=== PATIENT | male | born 1980 | race Caucasian/White ===

== ENCOUNTER 2017-02-16 20:46 | Emergency (ER) | payer BC, MEDICAID ==
[2017-02-16 20:54] VITALS: BP 158/103
[2017-02-16] MEDS ORDERED: Albuterol/Ipratropium 3.0-0.5 MG/3 ML Neb Soln NEB ONE (21:05)
--- NOTE | 2017-02-16 21:36 | EDM.PDOC ---
ED HPI GENERAL MEDICAL PROBLEM - General Chief Complaint: Respiratory Problem Stated Complaint: TROUBLE BREATHING Time Seen by Provider: 02/16/17 20:59 Source of Information: Reports: Patient History Limitations: Reports: No limitations - History of Present Illness INITIAL COMMENTS - FREE TEXT/NARRATIVE: History of present illness: [37-year-old male presenting with an irritant cough. He has been on inhalers in the past albuterol and Symbicort but couldn't afford it because he doesn't have insurance. He now has insurance and can afford to get his inhalers. 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 The cough is minimally productive and he's had no fevers or chills and no shortness of breath.] Review of systems: As per history of present illness and below otherwise all systems reviewed and negative. Past medical history: As per history of present illness and as reviewed below otherwise noncontributory. Surgical history: As per history of present illness and as reviewed below otherwise noncontributory. Social history: No reported history of drug or alcohol abuse. Family history: As per history of present illness and as reviewed below otherwise noncontributory. Physical exam: HEENT: Atraumatic, normocephalic, pupils reactive, negative for conjunctival pallor or scleral icterus, mucous membranes moist, throat clear, neck supple, nontender, trachea midline. Lungs: A few scattered expiratory wheezes were present he states that his chest hurts and may when he inspires Heart: S1S2, regular, negative for clicks, rubs, or JVD. Abdomen: Soft, nondistended, nontender. Negative for masses or hepatosplenomegaly. Negative for costovertebral tenderness. Pelvis: Stable nontender. Genitourinary: Deferred. Rectal: Deferred. Extremities: Atraumatic, negative for cords or calf pain. Neurovascular unremarkable. Neuro: Awake, alert, oriented. Exam nonfocal. Diagnostics: [] Therapeutics: [He received one DuoNeb treatment and his lungs cleared and he felt much better] Impression: [Cough as a manifestation of asthma] Plan: [I'm providing him with albuterol and Symbicort scripts so that he can resume his medications. He will get the albuterol from the instrument and get the Symbicort from her pharmacy tomorrow.] Definitive disposition and diagnosis as appropriate pending reevaluation and review of above. Left Middle Chest Pain Score (Numeric/FACES): 4 - Related Data Allergies Allergy/AdvReac Type Severity Reaction Status Date / Time No Known Allergies Allergy Verified 12/14/15 12:25 Home Meds: Home Meds NK [No Known Home Meds] 10/11/15 [History] Past Medical History Cardiovascular History: Reports: Other (see below) Other Cardiovascular History: "fluid around the heart" Respiratory History: Reports: Asthma, Interstitial lung disease, Other (see below) Other Respiratory History: has been seeing pulmonology and ID in [place] 2014 Musculoskeletal History: Reports: Back pain, chronic Neurological History: Reports: Head trauma, Migraines Psychiatric History: Reports: Anxiety, Depression 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 - Infectious Disease History Infectious Disease History: Reports: Chicken pox - Past Surgical History HEENT Surgical History: Reports: Myringotomy w tube(s) Other Musculoskeletal Surgeries/Procedures:: wrist and elbow surgery Social & Family History - Tobacco Use Smoking Status *Q: Former Smoker Years of Tobacco use: 17 Packs/Tins Daily: 1 Used Tobacco, but Quit: Yes Month Tobacco Last Used: 24 Second Hand Smoke Exposure: No - Caffeine Use Caffeine Use: Reports: Coffee, Soda - Alcohol Use Days Per Week of Alcohol Use: 0 - Recreational Drug Use Recreational Drug Use: No ED ROS GENERAL - Review of Systems Review Of Systems: ROS reveals no pertinent complaints other than HPI. ED EXAM, GENERAL - Physical Exam Exam: See Below Course - Vital Signs Last Recorded V/S: Last Vital Signs Temp 36.2 C 02/16/17 20:54 Pulse 103 H 02/16/17 20:54 Resp 20 02/16/17 20:54 BP 158/103 H 02/16/17 20:54 Pulse Ox 98 02/16/17 20:54 - Orders/Labs/Meds Orders: Active Orders 24 hr Category Date Time Status RT Aerosol Therapy [RC] ASDIRECTED Care 02/16/17 21:06 Active Meds: Medications Discontinued Medications Generic Name Dose Route Start Last Admin Trade Name Freq PRN Reason Stop Dose Admin Albuterol/Ipratropium 3 ml 02/16/17 21:05 02/16/17 21:12 Duoneb 3.0-0.5 Mg/3 Ml NEB 02/16/17 21:06 3 ml ONETIME ONE Administration Departure - Departure Time of Disposition: 21:35 Disposition: Home, Self-Care 01 Condition: good Clinical Impression: Cough variant asthma - Discharge Information Forms: ED Department Discharge Additional Instructions: If the inhalers are not helping her cough I would advise you followup with your primary care provider. He may need to have pulmonary function testing done. - My Orders Last 24 Hours: My Active Orders 02/16/17 21:06 RT Aerosol Therapy [RC] ASDIRECTED - Assessment/Plan Last 24 Hours: My Active Orders 02/16/17 21:06 RT Aerosol Therapy [RC] ASDIRECTED
== END 2017-02-16 21:51 | disposition home or self-care (01) ==
LOC: JP.ED 20:46
DX: J45.909 Unspecified asthma, uncomplicated (principal); R00.0 Tachycardia, unspecified; J84.9 Interstitial pulmonary disease, unspecified; Z87.891 Personal history of nicotine dependence; G89.29 Other chronic pain; M54.9 Dorsalgia, unspecified; F41.9 Anxiety disorder, unspecified; F32.9 Major depressive disorder, single episode, unspecified; D68.51 Activated protein C resistance
CPT/HCPCS: 94640; 99285; J7620

== ENCOUNTER 2017-07-18 17:33 | Emergency (ER) | payer BC ==
[2017-07-18 18:02] VITALS: BP 123/76
--- NOTE | 2017-07-18 18:32 | EDM.PDOC ---
ED HPI GENERAL MEDICAL PROBLEM - General Chief Complaint: General Stated Complaint: VISION NOT RIGHT, HEAD IS NUMB Time Seen by Provider: 07/18/17 18:27 Source of Information: Reports: Patient, Family History Limitations: Reports: No Limitations - History of Present Illness INITIAL COMMENTS - FREE TEXT/NARRATIVE: pt arrived with numbness in the left facial area. He has twitching in the left eye. Onset: Gradual, Other ( started last nite. ) Duration: Hour(s): Location: Reports: Face Quality: Reports: Sharp, Stabbing Associated Symptoms: Reports: No Other Symptoms - Related Data Allergies Allergy/AdvReac Type Severity Reaction Status Date / Time No Known Allergies Allergy Verified 07/18/17 18:02 Home Meds: Home Meds Albuterol Sulfate [Ventolin Hfa] 1 puff INH ASDIRECTED 07/18/17 [History] Budesonide/Formoterol [Symbicort 160-4.5 MCG] 1 puff INH ASDIRECTED 07/18/17 [ History] Sertraline HCl [Sertraline HCl] 1 tab PO DAILY 07/18/17 [History] Past Medical History Cardiovascular History: Reports: Other (See Below) Other Cardiovascular History: "fluid around the heart" Respiratory History: Reports: Asthma, Interstitial Lung Disease Other Respiratory History: has been seeing pulmonology and ID in [place] 2014 Musculoskeletal History: Reports: Back Pain, Chronic, Fracture Neurological History: Reports: Head Trauma, Migraines Psychiatric History: Reports: Anxiety, Depression 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 - Infectious Disease History Infectious Disease History: Reports: Chicken Pox - Past Surgical History HEENT Surgical History: Reports: Myringotomy w Tube(s) Musculoskeletal Surgical History: Reports: Other (See Below) Other Musculoskeletal Surgeries/Procedures:: wrist repair Social & Family History - Tobacco Use Smoking Status *Q: Never Smoker Years of Tobacco use: 17 Packs/Tins Daily: 1 Used Tobacco, but Quit: Yes Month Tobacco Last Used: 24 Second Hand Smoke Exposure: No - Caffeine Use Caffeine Use: Reports: Coffee, Soda - Alcohol Use Days Per Week of Alcohol Use: 0 - Recreational Drug Use Recreational Drug Use: No ED ROS GENERAL - Review of Systems Review Of Systems: See Below Constitutional: Reports: No Symptoms HEENT: Denies: Other ( facial numbness, left eye looks droopy and it is twitching. ) Respiratory: Reports: No Symptoms Cardiovascular: Reports: No Symptoms Endocrine: Reports: No Symptoms GI/Abdominal: Reports: No Symptoms : Reports: No Symptoms Musculoskeletal: Reports: No Symptoms Skin: Reports: No Symptoms ED EXAM, GENERAL - Physical Exam Exam: See Below Free Text/Narrative:: Pt arrived with left facial numbness and the left eye is twitching, He was recently checked for lymes. Exam Limited By: No Limitations General Appearance: Alert, Anxious, Moderate Distress, Other ( left eye lid looks dropopy and it is twitcy. ) Ears: Normal TMs Nose: Normal Inspection Throat/Mouth: Normal Inspection Head: Atraumatic Neck: Normal Inspection Respiratory/Chest: No Respiratory Distress Cardiovascular: Regular Rate, Rhythm GI/Abdominal: Soft, Non-Tender (Male) Exam: Deferred Rectal (Males) Exam: Deferred Back Exam: Normal Inspection Extremities: Other (pt has a weaker grasp on the left than on the rt. ) Neurological: Alert, Oriented, Normal Cognition Psychiatric: Normal Affect Course - Vital Signs Last Recorded V/S: Last Vital Signs Temp 36.3 C 07/18/17 18:00 Pulse 101 H 07/18/17 18:00 Resp 16 07/18/17 18:00 BP 123/76 07/18/17 18:00 Pulse Ox 96 07/18/17 18:00 Orthostatic Blood Pressure [ 129/97 Standing] Orthostatic Blood Pressure [ 125/93 Sitting] Orthostatic Blood Pressure [ 126/88 Supine] - Orders/Labs/Meds Orders: Active Orders 24 hr Category Date Time Status EKG Documentation Completion [RC] ASDIRECTED Care 07/18/17 18:25 Active Orthostatic Vital Signs [RC] ASDIRECTED Care 07/18/17 19:43 Active Head wo Cont [CT] Stat Exams 07/18/17 18:25 Taken LYME AB SCREEN RFLX [REF] Stat Lab 07/18/17 18:30 Received EKG 12 Lead [EK] Routine Ther 07/18/17 18:25 Ordered Labs: Laboratory Tests 07/18/17 07/18/17 07/18/17 Range/Units 18:24 18:34 18:34 WBC 6.5 (4.5-11.0) K/uL RBC 5.53 (4.30-5.90) M/uL Hgb 17.0 H (12.0-15.0) g/dL Hct 49.3 (40.0-54.0) % MCV 89 (80-98) fL MCH 31 (27-31) pg MCHC 35 (32-36) % Plt Count 264 (150-400) K/uL Neut % (Auto) 63 (36-66) % Lymph % (Auto) 22 L (24-44) % Furn[place] % (Auto) 12 H (2-6) % Eos % (Auto) 2 (2-4) % Baso % (Auto) 1 (0-1) % Sodium (140-148) mmol/L Potassium (3.6-5.2) mmol/L Chloride (100-108) mmol/L Carbon Dioxide (21-32) mmol/L Anion Gap (5.0-14.0) mmol/L BUN (7-18) mg/dL Creatinine (0.8-1.3) mg/dL Est Cr Clr Drug Dosing mL/min Estimated GFR (MDRD) (>60) Glucose (74-106) mg/dL Calcium (8.5-10.1) mg/dL Total Bilirubin (0.2-1.0) mg/dL AST (15-37) U/L ALT (12-78) U/L Alkaline Phosphatase (46-116) U/L C-Reactive Protein 0.21 (0.0-0.3) mg/dL Total Protein (6.4-8.2) g/dL Albumin (3.4-5.0) g/dL Globulin (2.3-3.5) g/dL Albumin/Globulin Ratio (1.2-2.2) Urine Color Yellow Urine Appearance Clear Urine pH 6.0 (4.5-8.0) Ur Specific Stanford 1.020 (1.008-1.030) Urine Protein Negative (NEGATIVE) mg/dL Urine Glucose (UA) 50 H (NEGATIVE) mg/dL Urine Ketones Negative (NEGATIVE) mg/dL Urine Occult Blood Negative (NEGATIVE) Urine Nitrite Negative (NEGAITVE) Urine Bilirubin Negative (NEGATIVE) Urine Urobilinogen Normal (NORMAL) mg/dL Ur Leukocyte Esterase Negative (NEGATIVE) Urine RBC 0-5 (0-5) Urine WBC 0-5 (0-5) Ur Epithelial Cells Rare Amorphous Sediment Not seen Urine Bacteria Not seen Urine Mucus Rare 07/18/17 Range/Units 18:34 WBC (4.5-11.0) K/uL RBC (4.30-5.90) M/uL Hgb (12.0-15.0) g/dL Hct (40.0-54.0) % MCV (80-98) fL MCH (27-31) pg MCHC (32-36) % Plt Count (150-400) K/uL Neut % (Auto) (36-66) % Lymph % (Auto) (24-44) % Furn[place] % (Auto) (2-6) % Eos % (Auto) (2-4) % Baso % (Auto) (0-1) % Sodium 138 L (140-148) mmol/L Potassium 3.8 (3.6-5.2) mmol/L Chloride 101 (100-108) mmol/L Carbon Dioxide 31 (21-32) mmol/L Anion Gap 9.8 (5.0-14.0) mmol/L BUN 14 (7-18) mg/dL Creatinine 1.1 (0.8-1.3) mg/dL Est Cr Clr Drug Dosing 96.78 mL/min Estimated GFR (MDRD) > 60 (>60) Glucose 78 (74-106) mg/dL Calcium 9.0 (8.5-10.1) mg/dL Total Bilirubin 0.5 (0.2-1.0) mg/dL AST 24 (15-37) U/L ALT 52 (12-78) U/L Alkaline Phosphatase 94 (46-116) U/L C-Reactive Protein (0.0-0.3) mg/dL Total Protein 7.2 (6.4-8.2) g/dL Albumin 3.8 (3.4-5.0) g/dL Globulin 3.4 (2.3-3.5) g/dL Albumin/Globulin Ratio 1.1 L (1.2-2.2) Urine Color Urine Appearance Urine pH (4.5-8.0) Ur Specific Stanford (1.008-1.030) Urine Protein (NEGATIVE) mg/dL Urine Glucose (UA) (NEGATIVE) mg/dL Urine Ketones (NEGATIVE) mg/dL Urine Occult Blood (NEGATIVE) Urine Nitrite (NEGAITVE) Urine Bilirubin (NEGATIVE) Urine Urobilinogen (NORMAL) mg/dL Ur Leukocyte Esterase (NEGATIVE) Urine RBC (0-5) Urine WBC (0-5) Ur Epithelial Cells Amorphous Sediment Urine Bacteria Urine Mucus Meds: Medications Discontinued Medications Generic Name Dose Route Start Last Admin Trade Name Souleymane PRN Reason Stop Dose Admin Aspirin 325 mg 07/18/17 19:51 07/18/17 19:56 Ecotrin PO 07/18/17 19:52 325 mg ONETIME ONE Administration - Re-Assessments/Exams Free Text/Narrative Re-Assessment/Exam: 07/18/17 19:39 Pt had a normal crp, His ekg looked good. His lab work was normal. A cat scan of the head was noted to be normal. He evidently had about 20 episodes where he just could not see normally and everything went dempsey. He was at work when this happened. He had another episode while he was here. He does have a twitchy eye lid and the eye lid looked droopy. Departure - Departure Time of Disposition: 20:09 Disposition: Home, Self-Care 01 Condition: Fair Clinical Impression: Peripheral nerve palsy - Discharge Information Referrals: Raiza Colmenares DO [Primary Care Provider] - Forms: ED Department Discharge Care Plan Goals: rtc to Er tomorrow to be rechecked and have a Mri of the head if symptoms persist. Rtc to the Er tonight if symptoms should get worse. - My Orders Last 24 Hours: My Active Orders 07/18/17 18:25 EKG Documentation Completion [RC] ASDIRECTED Head wo Cont [CT] Stat EKG 12 Lead [EK] Routine 07/18/17 18:30 LYME AB SCREEN RFLX [REF] Stat 07/18/17 19:43 Orthostatic Vital Signs [RC] ASDIRECTED - Assessment/Plan Last 24 Hours: My Active Orders 07/18/17 18:25 EKG Documentation Completion [RC] ASDIRECTED Head wo Cont [CT] Stat EKG 12 Lead [EK] Routine 07/18/17 18:30 LYME AB SCREEN RFLX [REF] Stat 07/18/17 19:43 Orthostatic Vital Signs [RC] ASDIRECTED
[2017-07-18] MEDS ORDERED: Aspirin 325 MG Tab.EC PO ONE (19:51)
== END 2017-07-18 20:26 | disposition home or self-care (01) ==
LOC: JP.ED 17:33
DX: G58.8 Other specified mononeuropathies (principal); J45.909 Unspecified asthma, uncomplicated; F32.9 Major depressive disorder, single episode, unspecified; Z89.622 Acquired absence of left hip joint; Z87.891 Personal history of nicotine dependence; Z79.899 Other long term (current) drug therapy
CPT/HCPCS: 36415; 70450; 80053; 81001; 85025; 86140; 86618; 93005; 99285; A9270

== ENCOUNTER 2017-07-20 20:34 | Emergency (ER) | payer BC ==
[2017-07-20] MEDS ORDERED: Sodium Chloride 0.9% 10 ML Syringe FLUSH PRN (21:37)
[2017-07-20] MEDS ORDERED: Iopamidol 755 Mg/ML 100 ML Bottle IV SCH (22:00)
[2017-07-20] MEDS ORDERED: Sodium Chloride 0.9% 100 ML IV SCH (22:00)
[2017-07-21 00:07] VITALS: BP 122/78
[2017-07-21] MEDS ORDERED: carBAMazepine 200 MG Tab PO ONE (00:19)
--- NOTE | 2017-07-21 00:23 | EDM.PDOC ---
ED HPI GENERAL MEDICAL PROBLEM - General Chief Complaint: Neuro Symptoms/Deficits Stated Complaint: FAINTED EARLIER Time Seen by Provider: 07/20/17 20:57 Source of Information: Reports: Patient, Old Records History Limitations: Reports: No Limitations - History of Present Illness INITIAL COMMENTS - FREE TEXT/NARRATIVE: This gentleman comes in for some very peculiar neuro symptoms. He was seen day before yesterday in the ER after he had some problems with twitching of his eyes and tingling left side of his face. He had about 20 episodes that day when his vision seemed abnormally and just sort of went dempsey on him. Dr. Olivares saw him and did the usual labs and EKG and head CT. That was all normal. He had an a brain MRI yesterday which was normal. Today as he was walking into the house he said suddenly his face had the sensation of pins and needles and it felt like some electric shock to his face. His vision suddenly went black and he went down. His saw this and said that he just immediately fell to his hands and knees. He did not completely pass out however this seemed to last about 30 seconds. There was no shaking or seizure-like activity. After this episode he was instantly back to normal. He feels back to his usual self now. He denied any shortness of breath or anything that would sound like hyperventilation. Standing up doesn't seem to cause orthostatic changes and it doesn't really seem like a vasovagal type of situation. - Related Data Allergies Allergy/AdvReac Type Severity Reaction Status Date / Time No Known Allergies Allergy Verified 07/18/17 18:02 Home Meds: Home Meds Albuterol Sulfate [Ventolin Hfa] 1 puff INH ASDIRECTED 07/18/17 [History] Budesonide/Formoterol [Symbicort 160-4.5 MCG] 1 puff INH ASDIRECTED 07/18/17 [ History] Sertraline HCl [Sertraline HCl] 1 tab PO DAILY 07/18/17 [History] Past Medical History Cardiovascular History: Reports: Other (See Below) Other Cardiovascular History: "fluid around the heart" Respiratory History: Reports: Asthma, Interstitial Lung Disease Other Respiratory History: has been seeing pulmonology and ID in [place] 2014 Musculoskeletal History: Reports: Back Pain, Chronic, Fracture Neurological History: Reports: Head Trauma, Migraines Psychiatric History: Reports: Anxiety, Depression 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 - Infectious Disease History Infectious Disease History: Reports: Chicken Pox - Past Surgical History HEENT Surgical History: Reports: Myringotomy w Tube(s) Musculoskeletal Surgical History: Reports: Other (See Below) Other Musculoskeletal Surgeries/Procedures:: wrist repair Social & Family History - Tobacco Use Smoking Status *Q: Never Smoker Years of Tobacco use: 17 Packs/Tins Daily: 1 Used Tobacco, but Quit: Yes Month Tobacco Last Used: 24 Second Hand Smoke Exposure: No - Caffeine Use Caffeine Use: Reports: Coffee, Soda - Alcohol Use Days Per Week of Alcohol Use: 0 - Recreational Drug Use Recreational Drug Use: No ED ROS GENERAL - Review of Systems Review Of Systems: See Below Constitutional: Reports: No Symptoms HEENT: Reports: No Symptoms Respiratory: Reports: No Symptoms Cardiovascular: Reports: No Symptoms. Denies: Chest Pain, Dyspnea on Exertion, Palpitations Endocrine: Reports: No Symptoms GI/Abdominal: Reports: No Symptoms : Reports: No Symptoms Musculoskeletal: Reports: No Symptoms Skin: Reports: No Symptoms Neurological: Reports: Other (See history of present illness) Psychiatric: Reports: No Symptoms Hematologic/Lymphatic: Reports: No Symptoms Immunologic: Reports: No Symptoms ED EXAM, NEURO - Physical Exam Exam: See Below Exam Limited By: No Limitations General Appearance: Alert, WD/WN, No Apparent Distress Eye Exam: Bilateral Eye: EOMI, PERRL Ears: Normal External Exam, Normal TMs Nose: Normal Inspection Throat/Mouth: Normal Inspection, Normal Oropharynx Head Exam: Atraumatic Neck: Normal Inspection Respiratory/Chest: Lungs Clear Cardiovascular: Normal Peripheral Pulses, Regular Rate, Rhythm, No Murmur GI/Abdominal: Normal Bowel Sounds, Soft, Non-Tender Neurological: Alert, Normal Mood/Affect, CN II-XII Intact, Normal Reflexes, No Motor/Sensory Deficits, Oriented x 3 Back Exam: Normal Inspection Extremities: Normal Inspection Psychiatric: Normal Affect, Normal Mood Skin Exam: Warm, Dry, Intact Course - Vital Signs Last Recorded V/S: Last Vital Signs Temp 36.6 C 07/20/17 20:39 Pulse 89 07/20/17 23:35 Resp 18 07/20/17 20:39 BP 122/78 07/20/17 23:35 Pulse Ox 93 L 07/20/17 23:35 - Orders/Labs/Meds Orders: Active Orders 24 hr Category Date Time Status Ang Head [CT] Stat Exams 07/20/17 21:37 Taken Ang Neck [CT] Stat Exams 07/20/17 21:37 Taken Iopamidol [Isovue-370 (76%)] Med 07/20/17 22:00 Active 100 ml IV . DIRECTED Sodium Chloride 0.9% [Normal Saline] 100 ml Med 07/20/17 22:00 Active IV ASDIRECTED Sodium Chloride 0.9% [Saline Flush] Med 07/20/17 21:37 Active 10 ml FLUSH ASDIRECTED PRN Saline Lock Insert [OM.PC] Urgent Oth 07/20/17 21:37 Ordered Medication Orders Sodium Chloride (Normal Saline) 100 mls @ 3 mls/sec IV ASDIRECTED BRIA Iopamidol (Isovue-370 (76%)) 100 ml IV . DIRECTED BRIA Sodium Chloride (Saline Flush) 10 ml FLUSH ASDIRECTED PRN PRN Reason: Keep Vein Open Last Admin: 07/20/17 22:27 Dose: 10 ml Meds: Medications Generic Name Dose Route Start Last Admin Trade Name Freq PRN Reason Stop Dose Admin Sodium Chloride 100 mls @ 3 mls/sec 07/20/17 22:00 Normal Saline IV ASDIRECTED BRIA Iopamidol 100 ml 07/20/17 22:00 Isovue-370 (76%) IV . DIRECTED BRIA Sodium Chloride 10 ml 07/20/17 21:37 07/20/17 22:27 Saline Flush FLUSH 10 ml ASDIRECTED PRN Administration Keep Vein Open Discontinued Medications Generic Name Dose Route Start Last Admin Trade Name Freq PRN Reason Stop Dose Admin Carbamazepine 200 mg 07/21/17 00:19 Tegretol Tab PO 07/21/17 00:20 ONETIME ONE - Re-Assessments/Exams Free Text/Narrative Re-Assessment/Exam: 07/21/17 00:[address] Godinez, the neurologist prescription benefit specialist at [facility]. He requested that we do a CT angiogram of the head and neck. That was done and it is normal. He recommended that we do an MRA with and without contrast of the trigeminal distribution. He also recommended either Tegretol 100 mg 3 times a day or Dilantin 103 times a day. We gave him a Tegretol 200 mg extended release here in the ER and we'll send him out with a prescription I spoke with who is prescription benefit specialist with the patient's personal physician Dr. Colmenares in [place] regarding follow-up. The patient is to call the clinic in the morning for hopefully a same day appointment so that the MR studies can be set up.. The patient will be sent home with copies of all of his ER notes labs and radiology reports. Departure - Departure Time of Disposition: 00:32 Disposition: Home, Self-Care 01 Condition: Fair Clinical Impression: Near syncope - Discharge Information Referrals: PCP,None [Primary Care Provider] - Forms: ED Department Discharge Additional Instructions: Please call the clinic in [place] tomorrow morning and ask for a same day appointment. Tell them that you were seen in the emergency department and that I talked with Dr. Berger. The Neurologist in [place] is Dr Godinez. This doctor recommended an MRA with and without contrast of the trigeminal area You should take the medication Tegretol 100 mg 3 times per day. Please note that you may not legally drive a vehicle or operate any kind of dangerous machinery until this matter is cleared up. You're always welcome to return to the ER at any time if needed - My Orders Last 24 Hours: My Active Orders 07/20/17 21:37 Ang Head [CT] Stat Ang Neck [CT] Stat Sodium Chloride 0.9% [Saline Flush] 10 ml FLUSH ASDIRECTED PRN Saline Lock Insert [OM.PC] Urgent 07/20/17 22:00 Iopamidol [Isovue-370 (76%)] 100 ml IV . DIRECTED Sodium Chloride 0.9% [Normal Saline] 100 ml IV ASDIRECTED - Assessment/Plan Last 24 Hours: My Active Orders 07/20/17 21:37 Ang Head [CT] Stat Ang Neck [CT] Stat Sodium Chloride 0.9% [Saline Flush] 10 ml FLUSH ASDIRECTED PRN Saline Lock Insert [OM.PC] Urgent 07/20/17 22:00 Iopamidol [Isovue-370 (76%)] 100 ml IV . DIRECTED Sodium Chloride 0.9% [Normal Saline] 100 ml IV ASDIRECTED
== END 2017-07-21 00:50 | disposition home or self-care (01) ==
LOC: JP.ED 20:34
DX: R55 Syncope and collapse (principal); Z79.899 Other long term (current) drug therapy
CPT/HCPCS: 70496; 70498; 99284; J7050

== ENCOUNTER 2018-01-18 17:44 | Emergency (ER) | payer BC ==
[2018-01-18 18:57] VITALS: BP 140/94
--- NOTE | 2018-01-18 19:58 | EDM.PDOC ---
ED HPI GENERAL MEDICAL PROBLEM - General Chief Complaint: Respiratory Problem Stated Complaint: PAIN/HARD TIME BREATHING/SURGERY 4 MONTHS AGO Time Seen by Provider: 01/18/18 19:50 Source of Information: Reports: Patient, Family, RN Notes Reviewed History Limitations: Reports: No Limitations - History of Present Illness INITIAL COMMENTS - FREE TEXT/NARRATIVE: 37-year-old gentleman presents to the emergency department today complaint of shortness of breath, he recently had a right lobectomy done about 4 months ago states he really has not recovered still feels short of breath from this surgery. 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 Surgery was done at [facility]. He has followed up with his surgeon and his primary care doctor without any relief from his shortness of breath. Denies any nausea vomiting fevers chest pain or GI symptoms Right Middle Chest Pain Score (Numeric/FACES): 8 - Related Data Allergies Allergy/AdvReac Type Severity Reaction Status Date / Time No Known Allergies Allergy Verified 07/18/17 18:02 Home Meds: Home Meds Sertraline HCl 1 tab PO DAILY 07/18/17 [History] Past Medical History Cardiovascular History: Reports: Other (See Below) Other Cardiovascular History: "fluid around the heart" Respiratory History: Reports: Asthma, Interstitial Lung Disease Other Respiratory History: has been seeing pulmonology and ID in [place] 2014 Musculoskeletal History: Reports: Back Pain, Chronic, Fracture Neurological History: Reports: Head Trauma, Migraines Psychiatric History: Reports: Anxiety, Depression 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 - Infectious Disease History Infectious Disease History: Reports: Chicken Pox - Past Surgical History HEENT Surgical History: Reports: Myringotomy w Tube(s) Respiratory Surgical History: Reports: Other (See Below) Other Respiratory Surgeries/Procedures: right mid lobectomy Musculoskeletal Surgical History: Reports: Other (See Below) Other Musculoskeletal Surgeries/Procedures:: wrist repair Social & Family History - Tobacco Use Smoking Status *Q: Never Smoker Years of Tobacco use: 17 Packs/Tins Daily: 1 Used Tobacco, but Quit: Yes Month/Year Tobacco Last Used: 24 Second Hand Smoke Exposure: No - Caffeine Use Caffeine Use: Reports: Coffee, Soda - Alcohol Use Days Per Week of Alcohol Use: 0 - Recreational Drug Use Recreational Drug Use: No ED ROS GENERAL - Review of Systems Review Of Systems: See Below Constitutional: Reports: No Symptoms HEENT: Reports: No Symptoms Respiratory: Reports: Shortness of Breath. Denies: Wheezing, Cough, Sputum Cardiovascular: Reports: No Symptoms GI/Abdominal: Reports: No Symptoms : Reports: No Symptoms Musculoskeletal: Reports: No Symptoms Skin: Reports: No Symptoms ED EXAM, GENERAL - Physical Exam Exam: See Below Exam Limited By: No Limitations General Appearance: Alert, WD/WN, No Apparent Distress Neck: Normal Inspection, Supple, Non-Tender, Full Range of Motion Respiratory/Chest: No Respiratory Distress, Lungs Clear, Normal Breath Sounds, No Accessory Muscle Use Cardiovascular: Regular Rate, Rhythm, No Murmur GI/Abdominal: Soft, Non-Tender Course - Vital Signs Last Recorded V/S: Last Vital Signs Temp 97.6 F 01/18/18 18:41 Pulse 85 01/18/18 18:56 Resp 16 01/18/18 18:41 BP 140/94 H 01/18/18 18:56 Pulse Ox 93 L 01/18/18 18:56 - Orders/Labs/Meds Orders: Active Orders 24 hr Category Date Time Status Peripheral IV Care [RC] . DIRECTED Care 01/18/18 20:47 Active Chest 2V [CR] Urgent Exams 01/18/18 19:55 Taken Chest w Cont [CT] Stat Exams 01/18/18 20:46 Taken Iopamidol [Isovue-300 (61%)] Med 01/18/18 21:00 Active 100 ml IV . DIRECTED Sodium Chloride 0.9% [Normal Saline] 75 ml Med 01/18/18 21:00 Active IV ASDIRECTED Sodium Chloride 0.9% [Saline Flush] Med 01/18/18 20:46 Active 10 ml FLUSH ASDIRECTED PRN Peripheral IV Insertion Adult [OM.PC] Urgent Oth 01/18/18 20:46 Ordered Medication Orders Sodium Chloride (Normal Saline) 75 mls @ 3 mls/sec IV ASDIRECTED BRIA Last Admin: 01/18/18 21:25 Dose: 3 mls/sec Iopamidol (Isovue-300 (61%)) 100 ml IV . DIRECTED BRIA Last Admin: 01/18/18 21:25 Dose: 100 ml Sodium Chloride (Saline Flush) 10 ml FLUSH ASDIRECTED PRN PRN Reason: Keep Vein Open Last Admin: 01/18/18 21:24 Dose: 10 ml Labs: Laboratory Tests 01/18/18 01/18/18 01/18/18 Range/Units 20:05 20:05 20:05 WBC 5.8 (4.5-11.0) K/uL RBC 5.35 (4.30-5.90) M/uL Hgb 16.5 H (12.0-15.0) g/dL Hct 47.0 (40.0-54.0) % MCV 88 (80-98) fL MCH 31 (27-31) pg MCHC 35 (32-36) % Plt Count 266 (150-400) K/uL Neut % (Auto) 53 (36-66) % Lymph % (Auto) 33 (24-44) % [place] % (Auto) 11 H (2-6) % Eos % (Auto) 2 (2-4) % Baso % (Auto) 1 (0-1) % D-Dimer, Quantitative < 100 (0.0-400.0) ng/mL Sodium 140 (140-148) mmol/L Potassium 3.7 (3.6-5.2) mmol/L Chloride 104 (100-108) mmol/L Carbon Dioxide 26 (21-32) mmol/L Anion Gap 9.9 (5.0-14.0) mmol/L BUN 15 (7-18) mg/dL Creatinine 1.1 (0.8-1.3) mg/dL Est Cr Clr Drug Dosing 99.83 mL/min Estimated GFR (MDRD) > 60 (>60) Glucose 107 H (74-106) mg/dL Calcium 9.2 (8.5-10.1) mg/dL Total Bilirubin 0.4 (0.2-1.0) mg/dL AST 23 (15-37) U/L ALT 40 (12-78) U/L Alkaline Phosphatase 86 (46-116) U/L Troponin I < 0.017 (0.000-0.056) ng/mL Total Protein 7.1 (6.4-8.2) g/dL Albumin 2.9 L (3.4-5.0) g/dL Globulin 4.2 H (2.3-3.5) g/dL Albumin/Globulin Ratio 0.7 L (1.2-2.2) Meds: Medications Generic Name Dose Route Start Last Admin Trade Name Freq PRN Reason Stop Dose Admin Sodium Chloride 75 mls @ 3 mls/sec 01/18/18 21:00 01/18/18 21:25 Normal Saline IV 3 mls/sec ASDIRECTED BRIA Administration Iopamidol 100 ml 01/18/18 21:00 01/18/18 21:25 Isovue-300 (61%) IV 100 ml . DIRECTED BRIA Administration Sodium Chloride 10 ml 01/18/18 20:46 01/18/18 21:24 Saline Flush FLUSH 10 ml ASDIRECTED PRN Administration Keep Vein Open Discontinued Medications Generic Name Dose Route Start Last Admin Trade Name Souleymane PRN Reason Stop Dose Admin Lactated Ringer's 1,000 mls @ 999 mls/hr 01/18/18 20:47 01/18/18 21:55 Ringers, Lactated IV 01/18/18 21:47 999 mls/hr BOLUS ONE Administration Departure - Departure Time of Disposition: 22:34 Disposition: Home, Self-Care 01 Condition: Good Clinical Impression: Dyspnea Qualifiers: Dyspnea type: shortness of breath Qualified Code(s): R06.02 - Shortness of breath; R06.00 - Dyspnea, unspecified; R06.01 - Orthopnea - Discharge Information Referrals: PCP,None [Primary Care Provider] - Forms: ED Department Discharge Additional Instructions: Please followup with your primary care provider in 3-5 days if not better, please call return to the emergency department with worsening of symptoms. - My Orders Last 24 Hours: My Active Orders 01/18/18 19:55 Chest 2V [CR] Urgent 01/18/18 20:46 Chest w Cont [CT] Stat Sodium Chloride 0.9% [Saline Flush] 10 ml FLUSH ASDIRECTED PRN Peripheral IV Insertion Adult [OM.PC] Urgent 01/18/18 20:47 Peripheral IV Care [RC] . DIRECTED 01/18/18 21:00 Iopamidol [Isovue-300 (61%)] 100 ml IV . DIRECTED Sodium Chloride 0.9% [Normal Saline] 75 ml IV ASDIRECTED - Assessment/Plan Last 24 Hours: My Active Orders 01/18/18 19:55 Chest 2V [CR] Urgent 01/18/18 20:46 Chest w Cont [CT] Stat Sodium Chloride 0.9% [Saline Flush] 10 ml FLUSH ASDIRECTED PRN Peripheral IV Insertion Adult [OM.PC] Urgent 01/18/18 20:47 Peripheral IV Care [RC] . DIRECTED 01/18/18 21:00 Iopamidol [Isovue-300 (61%)] 100 ml IV . DIRECTED Sodium Chloride 0.9% [Normal Saline] 75 ml IV ASDIRECTED Plan: Assessment Acuity = acute Site and laterality = dyspnea complicated in a patient with known history of right middle lobectomy Etiology = unclear etiology Manifestations = none Location of injury = Home Lab values = CBC unremarkable d-dimer was negative troponin negative albumin low at 2.9 consistent hypoalbuminemia, chest x-ray shows no acute process official read radiology is pending CT scan also shows no acute process Plan I did review lab work with him he is going to follow-up with his primary care in the next 3-5 days if no improvement This note was dictated using [employer] voice recognition software please call with any questions on syntax or mike.
[2018-01-18] MEDS ORDERED: Sodium Chloride 0.9% 10 ML Syringe FLUSH PRN (20:46)
[2018-01-18] MEDS ORDERED: Lactated Ringers 1,000 ML IV ONE (20:47)
[2018-01-18] MEDS ORDERED: Sodium Chloride 0.9% 75 ML IV SCH (21:00)
[2018-01-18] MEDS ORDERED: Iopamidol 612 MG/ML 100 ML Bottle IV SCH (21:00)
--- NOTE | 2018-01-19 11:36 | CR ---
Low lung volumes. Postsurgical changes to the right lung with surgical clips at the right hilum. No f ocal consolidation. Heart size within normal limits.
== END 2018-01-18 22:59 | disposition home or self-care (01) ==
LOC: JP.ED 17:44
DX: R06.02 Shortness of breath (principal); Z79.899 Other long term (current) drug therapy; Z87.891 Personal history of nicotine dependence
CPT/HCPCS: 36415; 71046; 71260; 80053; 84484; 85025; 85379; 96360; 99285; J7030; J7050; J7120; Q9967

== ENCOUNTER 2018-07-09 17:27 | Emergency (ER) | payer BC ==
[2018-07-09] MEDS ORDERED: diphenhydrAMINE 50 MG/ML SDV IM ONE (17:41)
[2018-07-09] MEDS ORDERED: methylPREDNISolone Sodium Succinate 125 MG/2 ML SDV IM ONE (17:41)
[2018-07-09] MEDS ORDERED: Albuterol/Ipratropium 3.0-0.5 MG/3 ML Neb Soln NEB ONE (18:10)
--- NOTE | 2018-07-09 18:23 | EDM.PDOC ---
ED HPI GENERAL MEDICAL PROBLEM - General Chief Complaint: Allergic Reaction Stated Complaint: ILLNESS Time Seen by Provider: 07/09/18 17:40 Source of Information: Reports: Patient, Family History Limitations: Reports: No Limitations - History of Present Illness INITIAL COMMENTS - FREE TEXT/NARRATIVE: 38-year-old male who has had a cold for the last 4 days, when the clinic 3 days ago and was placed on amoxicillin. Strep was negative but he was placed on a course of amoxicillin in case it "wasn't viral". He feels he is getting worse over the last 2 days, more hoarse, and today was having a hard time breathing with persistent coughing and fainted twice. His thought his face looked red and he was having an allergic reaction to the amoxicillin so he was brought in. Onset: Gradual (Worse over the past 2 days) Associated Symptoms: Reports: Chest Pain, Cough, Headaches, Shortness of Breath , Weakness Face Pain Score (Numeric/FACES): 3 - Related Data Allergies Allergy/AdvReac Type Severity Reaction Status Date / Time amoxicillin Allergy Dizziness Verified 07/09/18 17:45 Home Meds: Home Meds Sertraline HCl 1 tab PO DAILY 07/18/17 [History] DULoxetine HCl [Duloxetine HCl] 1 tab PO DAILY 07/09/18 [History] Gabapentin [Neurontin] 2 tab PO TID 07/09/18 [History] Past Medical History Cardiovascular History: Reports: Other (See Below) Other Cardiovascular History: "fluid around the heart" Respiratory History: Reports: Asthma, Interstitial Lung Disease Other Respiratory History: has been seeing pulmonology and ID in [place] 2014 Musculoskeletal History: Reports: Back Pain, Chronic, Fracture Neurological History: Reports: Head Trauma, Migraines Psychiatric History: Reports: Anxiety, Depression 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 - Infectious Disease History Infectious Disease History: Reports: Chicken Pox - Past Surgical History HEENT Surgical History: Reports: Myringotomy w Tube(s) Respiratory Surgical History: Reports: Other (See Below) Other Respiratory Surgeries/Procedures: right mid lobectomy Neurological Surgical History: Reports: Other (See Below) Other Neurological Surgeries/Procedures: 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 Denies: Fever, Chills HEENT: Reports: Other (Hoarseness) Respiratory: Reports: Shortness of Breath, Wheezing, Cough Cardiovascular: Reports: Chest Pain (With breathing) GI/Abdominal: Reports: Nausea. Denies: Vomiting Skin: Reports: Other (Erythema of the face) Neurological: Reports: Dizziness, Syncope, Weakness Psychiatric: Reports: Anxiety ED EXAM GENERAL NO PERIP PULSE - Physical Exam Exam: See Below Exam Limited By: No Limitations General Appearance: Alert, Anxious Throat/Mouth: Normal Inspection Head: Atraumatic Respiratory/Chest: No Respiratory Distress, Lungs Clear Cardiovascular: Regular Rate, Rhythm, Tachycardia (Mild tachycardia) Extremities: Normal Inspection Neurological: Alert, Oriented Skin Exam: Warm, Dry, Erythema (Some hyperemia of the face and forehead but no widespread rash, no hives) Course - Vital Signs Last Recorded V/S: Last Vital Signs Temp 96.0 F 07/09/18 18:38 Pulse 103 H 07/09/18 18:38 Resp 15 07/09/18 18:38 BP 139/83 07/09/18 18:38 Pulse Ox 95 07/09/18 18:38 - Orders/Labs/Meds Orders: Active Orders 24 hr Category Date Time Status RT Aerosol Therapy [RC] ASDIRECTED Care 07/09/18 18:10 Active Meds: Medications Discontinued Medications Generic Name Dose Route Start Last Admin Trade Name Souleymane PRN Reason Stop Dose Admin Albuterol/Ipratropium 3 ml 07/09/18 18:10 07/09/18 18:13 Duoneb 3.0-0.5 Mg/3 Ml NEB 07/09/18 18:11 3 ml ONETIME ONE Administration Diphenhydramine HCl 50 mg 07/09/18 17:41 07/09/18 17:46 Benadryl IM 07/09/18 17:42 50 mg ONETIME ONE Administration Methylprednisolone Sodium Succinate 125 mg 07/09/18 17:41 07/09/18 17:46 Solu-Medrol IM 07/09/18 17:42 125 mg ONETIME ONE Administration - Re-Assessments/Exams Free Text/Narrative Re-Assessment/Exam: 07/09/18 18:21 This patient may be developing a sensitivity to amoxicillin but I think his symptoms are as much related to his viral bronchitis and cold. He was given 50 mg of IM Benadryl and 125 of IM Solu-Medrol. He can stop the amoxicillin and continue on prednisone 60 mg daily for the next 3-5 days, taking a full dose with his morning meals. Departure - Departure Time of Disposition: 18:40 Disposition: Home, Self-Care 01 Condition: Good Clinical Impression: Viral bronchitis, Laryngitis - Discharge Information Instructions: Viral Respiratory Infection, [id number] Referrals: PCP,None [Primary Care Provider] - Forms: ED Department Discharge Care Plan Goals: Stop amoxicillin, take 6 pills of prednisone with your morning meal for the next 3-5 days. Increase activity as tolerated and stay hydrated. - My Orders Last 24 Hours: My Active Orders 07/09/18 18:10 RT Aerosol Therapy [RC] ASDIRECTED - Assessment/Plan Last 24 Hours: My Active Orders 07/09/18 18:10 RT Aerosol Therapy [RC] ASDIRECTED
[2018-07-09 18:38] VITALS: BP 139/83
== END 2018-07-09 18:44 | disposition home or self-care (01) ==
LOC: JP.ED 17:27
DX: J20.8 Acute bronchitis due to other specified organisms (principal); J04.0 Acute laryngitis; F41.9 Anxiety disorder, unspecified; F32.9 Major depressive disorder, single episode, unspecified; Z79.899 Other long term (current) drug therapy; Z88.1 Allergy status to other antibiotic agents
CPT/HCPCS: 94640; 96372; 99284; J1200; J2930; J7620-GY

== ENCOUNTER 2021-10-17 15:07 | Emergency (ER) | payer BC, MEDICAID ==
[2021-10-17 16:12] LABS: CORONAVIRUS COVID-19 NAA POSITIVE (NEGATIVE)
[2021-10-17] MEDS ORDERED: Acetaminophen 325 MG Tab PO PRN (16:29)
[2021-10-17] MEDS ORDERED: Sodium Chloride 0.9% 10 ML Syringe FLUSH PRN (16:31)
[2021-10-17] MEDS ORDERED: Ketorolac 30 MG/ML SDV IVPUSH ONE (16:31)
--- NOTE | 2021-10-17 16:33 | EDM.PDOC ---
ED HPI GENERAL MEDICAL PROBLEM - General Chief Complaint: Respiratory Problem Stated Complaint: CHEST,LOWER WAIST, KNEE, FEET PAIN Time Seen by Provider: 10/17/21 16:13 Source of Information: Reports: Patient, RN Notes Reviewed History Limitations: Reports: No Limitations - History of Present Illness INITIAL COMMENTS - FREE TEXT/NARRATIVE: 41-year-old gentleman presents emergency department today complaint of shortness of breath and body aches, he is unvaccinated he has been ill for about 2 days has had fevers at home states he gets very winded and short of breath with any amount of exertion Generalized Pain Score (Numeric/FACES): 6 - Related Data Allergies Allergy/AdvReac Type Severity Reaction Status Date / Time amoxicillin Allergy Dizziness Verified 07/09/18 17:45 Home Meds: Home Meds Sertraline HCl 1 tab PO DAILY 07/18/17 [History] DULoxetine HCl [Duloxetine HCl] 1 tab PO DAILY 07/09/18 [History] Gabapentin [Neurontin] 2 tab PO TID 07/09/18 [History] Past Medical History Cardiovascular History: Reports: Other (See Below) Other Cardiovascular History: "fluid around the heart" Respiratory History: Reports: Asthma, Interstitial Lung Disease Other Respiratory History: has been seeing pulmonology and ID in [place] 2014 Musculoskeletal History: Reports: Back Pain, Chronic, Fracture Neurological History: Reports: Head Trauma, Migraines Psychiatric History: Reports: Anxiety, Depression 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 - Infectious Disease History Infectious Disease History: Reports: Chicken Pox - Past Surgical History HEENT Surgical History: Reports: Myringotomy w Tube(s) Respiratory Surgical History: Reports: Other (See Below) Other Respiratory Surgeries/Procedures: right mid lobectomy Neurological Surgical History: Reports: Other (See Below) Other Neurological Surgeries/Procedures: 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12 Musculoskeletal Surgical History: Reports: Other (See Below) Other Musculoskeletal Surgeries/Procedures:: wrist repair, bilateral tennis elbow repair Social & Family History - Tobacco Use Tobacco Use Status *Q: Never Tobacco User - Caffeine Use Caffeine Use: Reports: Coffee, Soda, Tea - Recreational Drug Use Recreational Drug Use: No ED ROS GENERAL - Review of Systems Review Of Systems: See Below Constitutional: Reports: Fever, Weakness, Fatigue HEENT: Reports: No Symptoms Respiratory: Reports: Shortness of Breath Cardiovascular: Reports: Chest Pain, Dyspnea on Exertion GI/Abdominal: Reports: No Symptoms Musculoskeletal: Reports: Muscle Pain, Muscle Stiffness ED EXAM, GENERAL - Physical Exam Exam: See Below Exam Limited By: No Limitations General Appearance: Alert, WD/WN, Mild Distress Respiratory/Chest: No Respiratory Distress, Lungs Clear, Normal Breath Sounds, No Accessory Muscle Use, Chest Non-Tender Cardiovascular: Regular Rate, Rhythm, No Murmur GI/Abdominal: Soft, Non-Tender #1 Interpretation EKG Date: 10/17/21 Time: 16:34 Rhythm: NSR (All my God) [place]: Normal P-Wave: Present QRS: Normal ST-T: Normal QT: Normal Comparison: No Change Course - Vital Signs Last Recorded V/S: Last Vital Signs Temp 100.9 F H 10/17/21 18:17 Pulse 102 H 10/17/21 17:21 Resp 25 H 10/17/21 17:21 BP 123/89 10/17/21 17:21 Pulse Ox 98 10/17/21 17:21 - Orders/Labs/Meds Orders: Active Orders 24 hr Category Date Time Status Nurse Communication: Isolation [RC] ASDIRECTED Care 10/17/21 16:30 Active Peripheral IV Care [RC] . DIRECTED Care 10/17/21 16:31 Active Positioning, Patient [RC] ASDIRECTED Care 10/17/21 16:29 Active Chest 1V Frontal [CR] Stat Exams 10/17/21 16:30 Taken Acetaminophen [TylenoL] Med 10/17/21 16:29 Active 650 mg PO Q4H PRN Sodium Chloride 0.9% [Saline Flush] Med 10/17/21 16:31 Active 10 ml FLUSH ASDIRECTED PRN Isolation [COMM] Stat Oth 10/17/21 16:29 Ordered Peripheral IV Insertion Adult [OM.PC] Urgent Oth 10/17/21 16:31 Ordered Medication Orders Acetaminophen (Acetaminophen 325 Mg Tab) 650 mg PO Q4H PRN PRN Reason: Fever Greater Than 101 Last Admin: 10/17/21 18:17 Dose: 650 mg Documented by: HARDEEP Sodium Chloride (Sodium Chloride 0.9% 10 Ml Syringe) 10 ml FLUSH ASDIRECTED PRN PRN Reason: Keep Vein Open Labs: Laboratory Tests 10/17/21 10/17/21 10/17/21 Range/Units 15:30 16:35 16:35 WBC 5.8 (3.2-11.0) K/uL RBC 5.71 (4.14-5.76) M/uL Hgb 17.7 H (12.9-16.9) Hct 51.3 H (38.4-49.7) % MCV 89.8 (81.4-99.0) fL MCH 31.0 L (31.6-35.5) pg MCHC 34.5 (31.6-35.5) g/dL Plt Count 214 (130-375) K/uL Immature Gran % (Auto) 0.7 (0.0-0.7) % Neut % (Auto) 71.3 H (36-66) % Lymph % (Auto) 9.9 L (24-44) % [place] % (Auto) 16.7 H (2-6) % Eos % (Auto) 0.5 L (2-4) % Baso % (Auto) 0.9 (0-1) % Neut # (Auto) 4.11 (1.0-7.6) K/uL Lymph # (Auto) 0.57 L (0.8-3.3) K/uL [place] # (Auto) 0.96 H (0.20-0.90) K/uL Eos # (Auto) 0.03 (0.00-0.40) K/uL Baso # (Auto) 0.05 (0.00-0.10) K/uL Immature Gran # (Auto) 0.04 (0.00-0.23) K/uL D-Dimer, Quantitative 298.76 (0.0-500.0) ng/mL Sodium (140-148) mmol/L Potassium (3.6-5.2) mmol/L Chloride (100-108) mmol/L Carbon Dioxide (21-32) mmol/L Anion Gap (5.0-14.0) mmol/L BUN (7-18) mg/dL Creatinine (0.8-1.3) mg/dL Est Cr Clr Drug Dosing mL/min Estimated GFR (MDRD) (>60) Glucose (74-106) mg/dL Lactic Acid (0.4-2.0) mmol/L Calcium (8.5-10.1) mg/dL Total Bilirubin (0.2-1.0) mg/dL AST (15-37) U/L ALT (12-78) U/L Alkaline Phosphatase (46-116) U/L Troponin I High Sens (<=60.3) pg/mL C-Reactive Protein (0.0-0.3) mg/dL Total Protein (6.4-8.2) g/dL Albumin (3.4-5.0) g/dL Globulin (2.3-3.5) g/dL Albumin/Globulin Ratio (1.2-2.2) Procalcitonin ng/mL Influenza Type A RNA Negative (NEGATIVE) RSV RNA (INAAT) Negative (NEGATIVE) Influenza Type B RNA Negative (NEGATIVE) SARS-CoV-2 RNA (PAPA) Positive H (NEGATIVE) 10/17/21 10/17/21 10/17/21 Range/Units 16:35 16:35 16:35 WBC (3.2-11.0) K/uL RBC (4.14-5.76) M/uL Hgb (12.9-16.9) Hct (38.4-49.7) % MCV (81.4-99.0) fL MCH (31.6-35.5) pg MCHC (31.6-35.5) g/dL Plt Count (130-375) K/uL Immature Gran % (Auto) (0.0-0.7) % Neut % (Auto) (36-66) % Lymph % (Auto) (24-44) % [place] % (Auto) (2-6) % Eos % (Auto) (2-4) % Baso % (Auto) (0-1) % Neut # (Auto) (1.0-7.6) K/uL Lymph # (Auto) (0.8-3.3) K/uL [place] # (Auto) (0.20-0.90) K/uL Eos # (Auto) (0.00-0.40) K/uL Baso # (Auto) (0.00-0.10) K/uL Immature Gran # (Auto) (0.00-0.23) K/uL D-Dimer, Quantitative (0.0-500.0) ng/mL Sodium (140-148) mmol/L Potassium (3.6-5.2) mmol/L Chloride (100-108) mmol/L Carbon Dioxide (21-32) mmol/L Anion Gap (5.0-14.0) mmol/L BUN (7-18) mg/dL Creatinine (0.8-1.3) mg/dL Est Cr Clr Drug Dosing mL/min Estimated GFR (MDRD) (>60) Glucose (74-106) mg/dL Lactic Acid 1.9 (0.4-2.0) mmol/L Calcium (8.5-10.1) mg/dL Total Bilirubin (0.2-1.0) mg/dL AST (15-37) U/L ALT (12-78) U/L Alkaline Phosphatase (46-116) U/L Troponin I High Sens (<=60.3) pg/mL C-Reactive Protein 1.95 H (0.0-0.3) mg/dL Total Protein (6.4-8.2) g/dL Albumin (3.4-5.0) g/dL Globulin (2.3-3.5) g/dL Albumin/Globulin Ratio (1.2-2.2) Procalcitonin 0.05 ng/mL Influenza Type A RNA (NEGATIVE) RSV RNA (INAAT) (NEGATIVE) Influenza Type B RNA (NEGATIVE) SARS-CoV-2 RNA (PAPA) (NEGATIVE) 10/17/21 10/17/21 Range/Units 16:35 16:35 WBC (3.2-11.0) K/uL RBC (4.14-5.76) M/uL Hgb (12.9-16.9) Hct (38.4-49.7) % MCV (81.4-99.0) fL MCH (31.6-35.5) pg MCHC (31.6-35.5) g/dL Plt Count (130-375) K/uL Immature Gran % (Auto) (0.0-0.7) % Neut % (Auto) (36-66) % Lymph % (Auto) (24-44) % [place] % (Auto) (2-6) % Eos % (Auto) (2-4) % Baso % (Auto) (0-1) % Neut # (Auto) (1.0-7.6) K/uL Lymph # (Auto) (0.8-3.3) K/uL [place] # (Auto) (0.20-0.90) K/uL Eos # (Auto) (0.00-0.40) K/uL Baso # (Auto) (0.00-0.10) K/uL Immature Gran # (Auto) (0.00-0.23) K/uL D-Dimer, Quantitative (0.0-500.0) ng/mL Sodium 136 L (140-148) mmol/L Potassium 4.0 (3.6-5.2) mmol/L Chloride 99 L (100-108) mmol/L Carbon Dioxide 29 (21-32) mmol/L Anion Gap 12.0 (5.0-14.0) mmol/L BUN 12 (7-18) mg/dL Creatinine 1.1 (0.8-1.3) mg/dL Est Cr Clr Drug Dosing 93.09 mL/min Estimated GFR (MDRD) > 60 (>60) Glucose 100 (74-106) mg/dL Lactic Acid (0.4-2.0) mmol/L Calcium 9.1 (8.5-10.1) mg/dL Total Bilirubin 0.5 (0.2-1.0) mg/dL AST 30 (15-37) U/L ALT 72 D (12-78) U/L Alkaline Phosphatase 110 (46-116) U/L Troponin I High Sens 6.2 (<=60.3) pg/mL C-Reactive Protein (0.0-0.3) mg/dL Total Protein 7.5 (6.4-8.2) g/dL Albumin 3.8 (3.4-5.0) g/dL Globulin 3.7 H (2.3-3.5) g/dL Albumin/Globulin Ratio 1.0 L (1.2-2.2) Procalcitonin ng/mL Influenza Type A RNA (NEGATIVE) RSV RNA (INAAT) (NEGATIVE) Influenza Type B RNA (NEGATIVE) SARS-CoV-2 RNA (PAPA) (NEGATIVE) Meds: Medications Generic Name Dose Route Start Last Admin Trade Name Freq PRN Reason Stop Dose Admin Acetaminophen 650 mg 10/17/21 16:29 10/17/21 18:17 Acetaminophen 325 Mg Tab PO 650 mg Q4H PRN Administration Fever Greater Than 101 Sodium Chloride 10 ml 10/17/21 16:31 Sodium Chloride 0.9% 10 Ml Syringe FLUSH ASDIRECTED PRN Keep Vein Open Discontinued Medications Generic Name Dose Route Start Last Admin Trade Name Souleymane PRN Reason Stop Dose Admin Ketorolac Tromethamine 30 mg 10/17/21 16:31 10/17/21 18:09 Ketorolac 30 Mg/Ml Sdv IVPUSH 10/17/21 16:32 30 mg ONETIME ONE Administration Departure - Departure Time of Disposition: 18:43 Disposition: Home, Self-Care 01 Condition: Fair Clinical Impression: COVID-19 - Discharge Information Instructions: 10 Things You Can Do to Manage Your COVID-19 Symptoms at Home - [facility] [place]) Referrals: PCP,None [Primary Care Provider] - Forms: ED Department Discharge Additional Instructions: Use Toradol as needed for body aches, continue to self quarantine, please followup with your primary care provider in 10-15 days if not better, please call return to the emergency department with worsening of symptoms. Sepsis Event Note (ED) - Evaluation Sepsis Screening Result: No Definite Risk - Focused Exam Vital Signs: Vital Signs Temp Temp Pulse Resp BP Pulse Ox 10/17/21 18:17 100.9 F H 10/17/21 17:21 102 H 25 H 123/89 98 10/17/21 16:26 111 H 24 H 140/70 99 10/17/21 16:05 104 H 25 H 126/92 H 99 10/17/21 15:32 97.2 F 104 H 106 H 127/88 100 - My Orders Last 24 Hours: My Active Orders 10/17/21 16:29 Positioning, Patient [RC] ASDIRECTED Acetaminophen [TylenoL] 650 mg PO Q4H PRN Isolation [COMM] Stat 10/17/21 16:30 Nurse Communication: Isolation [RC] ASDIRECTED Chest 1V Frontal [CR] Stat 10/17/21 16:31 Peripheral IV Care [RC] . DIRECTED Sodium Chloride 0.9% [Saline Flush] 10 ml FLUSH ASDIRECTED PRN Peripheral IV Insertion Adult [OM.PC] Urgent - Assessment/Plan Last 24 Hours: My Active Orders 10/17/21 16:29 Positioning, Patient [RC] ASDIRECTED Acetaminophen [TylenoL] 650 mg PO Q4H PRN Isolation [COMM] Stat 10/17/21 16:30 Nurse Communication: Isolation [RC] ASDIRECTED Chest 1V Frontal [CR] Stat 10/17/21 16:31 Peripheral IV Care [RC] . DIRECTED Sodium Chloride 0.9% [Saline Flush] 10 ml FLUSH ASDIRECTED PRN Peripheral IV Insertion Adult [OM.PC] Urgent Plan: Assessment Acuity = acute Site and laterality = viral syndrome Etiology = COVID-19 Manifestations = body aches Location of injury = Home Lab values = CBC CMP unremarkable lactic acid within normal limits D-dimer is negative positive COVID-19 negative for flu and negative for RSV, chest x-ray no acute process pressure read radiology pending Plan Good improvement on the body aches with Toradol therefore prescription written for Toradol 10 mg 1 tab p.o. every 6 hours as needed total #20 have him self quarantine follow-up with primary care in 10 to 15 days if not better return to the ED with worsening of symptoms This note was dictated using [employer] voice recognition software please call with any questions on syntax or grammar.
[2021-10-17 17:22] VITALS: BP 123/89; PULSE 102
--- NOTE | 2021-10-19 10:10 | CR ---
CHEST: Portable 10/17/2021 at 5:10 PM CLINICAL HISTORY:Respiratory failure COMPARISON:CT 01/18/2018 FINDINGS: There is some chronic elevation of the right hemidiaphragm. The heart size, pulmonary vascularity and hilar structures are normal. No infiltrate effusion or pneumothorax is seen. There are some surgical clips in the right hilum IMPRESSION: No acute cardiopulmonary process. Previous right thoracotomy
== END 2021-10-17 19:03 | disposition home or self-care (01) ==
LOC: JP.ED 15:07
DX: U07.1 COVID-19 (principal); J45.909 Unspecified asthma, uncomplicated; Z88.0 Allergy status to penicillin; Z79.899 Other long term (current) drug therapy
CPT/HCPCS: 0241U; 36415; 71045; 80053; 83605; 84145; 84484; 85025; 85379; 86140; 93010; 96374; 99285; A9270; J1885

== ENCOUNTER 2021-11-01 15:18 | Emergency (ER) | payer MEDICAID ==
[2021-11-01 15:31] VITALS: BP 136/103; PULSE 111
== END 2021-11-01 15:57 | disposition home or self-care (01) ==
LOC: JP.ED 15:18
DX: R20.8 Other disturbances of skin sensation (principal); J45.909 Unspecified asthma, uncomplicated; Z88.0 Allergy status to penicillin; Z79.899 Other long term (current) drug therapy
CPT/HCPCS: 99283

== ENCOUNTER 2024-08-28 11:20 | Emergency (ER) | payer BC, MEDICAID ==
[2024-08-28 12:17] LABS: BASOPHILS ABSOLUTE AUTO 0.06 K/uL (0.00-0.10); EOSINOPHILS PERCENT AUTO 1.7 % (0.0-5.4); HEMATOCRIT 47.2 % (38.4-49.7); HEMOGLOBIN 16.7 g/dL (12.9-16.9); IMMATURE GRAN PERCENT AUTO 0.2 % (0.0-0.7); LYMPHOCYTES ABSOLUTE AUTO 1.89 K/uL (0.8-3.3); LYMPHOCYTES PERCENT AUTO 31.2 % (11.4-47.7); MEAN CORPUSCULAR HEMOGLOBIN 31.8 pg (31.6-35.5); MEAN CORPUSCULAR HGB CONC 35.4 g/dL (31.6-35.5); MEAN CORPUSCULAR VOLUME 89.9 fL (81.4-99.0); MONOCYTES ABSOLUTE AUTO 0.49 K/uL (0.20-0.90); MONOCYTES PERCENT AUTO 8.1 % (3.3-12.6); NEUTROPHILS PERCENT AUTO 57.8 % (40.0-78.1); PLATELET COUNT,PLT 247 K/uL (130-375); RED BLOOD CELL COUNT 5.25 M/uL (4.14-5.76); WHITE BLOOD CELL COUNT,WBC 6.1 K/uL (3.2-11.0)
[2024-08-28 12:23] LABS: IMMATURE GRAN ABSOLUTE AUTO 0.01 K/uL (0.00-0.23)
[2024-08-28 12:37] LABS: A/G RATIO 1.2 (1.2-2.2); ALANINE AMINOTRANSFERASE,ALT 36 U/L (12-78); ALBUMIN 4.1 g/dL (3.4-5.0); ALKALINE PHOSPHATASE 108 U/L (46-116); ASPARTATE AMNIOTRANSFERASE,AST 19 U/L (15-37); BILIRUBIN TOTAL 0.5 mg/dL (0.2-1.0); BLOOD UREA NITROGEN,BUN 16 mg/dL (7-18); CALCIUM 9.6 mg/dL (8.5-10.1); CARBON DIOXIDE,CO2 30 mmol/L (21-32); CHLORIDE,CL 101 mmol/L (100-108); CREATININE 1.3 mg/dL (0.8-1.3); EST CRCL DRUG DOSING (CG) 78.84 mL/min; ESTIMATED GFR 70 mL/min (>60); GLUCOSE RANDOM 106 mg/dL (74-106); POTASSIUM,K 4.5 mmol/L (3.6-5.2); PROTEIN TOTAL,TP 7.5 g/dL (6.4-8.2); SODIUM,NA 137 mmol/L (140-148)
[2024-08-28 12:39] LABS: ANION GAP 10.5 mmol/L (5.0-14.0)
[2024-08-28 14:24] VITALS: BP 131/96; PULSE 71
== END 2024-08-28 14:27 | disposition home or self-care (01) ==
LOC: JP.ED 11:20
DX: R06.02 Shortness of breath (principal); Z88.0 Allergy status to penicillin; Z79.899 Other long term (current) drug therapy
CPT/HCPCS: 36415; 71046; 71046-26; 80053; 84484; 85025; 85379; 93005; 93010; 99284; 99285

== ENCOUNTER 2025-07-22 14:18 | Emergency (ER) | payer OTHER, BC ==
[2025-07-22] MEDS: Ketorolac 15 MG/ML SDV IM ONE (16:49)
[2025-07-22 17:30] VITALS: BP 122/86; PULSE 64
== END 2025-07-22 17:52 | disposition home or self-care (01) ==
LOC: JP.ED 14:18
DX: S69.91XA Unspecified injury of right wrist, hand and finger(s), initial encounter (principal); Z88.0 Allergy status to penicillin; Z79.899 Other long term (current) drug therapy; W23.0XXA Caught, crushed, jammed, or pinched between moving objects, initial encounter
CPT/HCPCS: 73110; 96372; 99283; J1885